=== PATIENT | male | born 1995 | race Caucasian/White ===

== ENCOUNTER 2018-04-22 16:28 | Emergency (ER) | payer BC, OTHER ==
[2018-04-22 18:02] LABS: #Basophils 0.1 thou/uL (0.0-0.2); #Eosinphils 0.2 thou/uL (0.0-0.7); #Lymphocytes 2.1 thou/uL (1.20-3.40); #Monocytes 1.2 thou/uL (0.11-0.59); #Neutrophils 5.2 thou/uL (1.40-6.50); %Eosinophils 2.2 % (0.0-10.0); %Lymphocytes 23.8 % (28.0-48.0); Hemoglobin 15.5 g/dL (14.0-18.0); Mean Corpuscular HGB CONC 31.9 g/dL (32.0-36.0); Mean Corpuscular Hemoglobin 27.3 pg (25.0-35.0); Mean Corpuscular Volume 85.5 fL (78.0-98.0); Mean Platelet Volume 8.6 fL (7.4-10.4); Platelet Count 213 thou/uL (130-400); RBC Distribution Width 12.7 % (11.5-14.5); Red Blood Cell (RBC) Count 5.69 mill/uL (4.00-5.20); White Blood Cell (WBC) Count 8.8 thou/uL (4.8-10.8)
[2018-04-22 18:21] LABS: ALT (SGPT) 38 U/L (8-55); AST (SGOT) 23 U/L (5-34); Albumin 4.3 g/dL (3.5-5.0); Alkaline Phosphatase 92 U/L (Less than 750); Anion Gap 12 mmol/L (10-20); BUN (Urea Nitrogen) 13 mg/dL (8.9-20.6); Bilirubin, Total 0.7 mg/dL (0.2-1.2); Calc. Creatinine Clearance 0 mL/min (70-130); Calcium 9.7 mg/dL (7.8-10.44); Carbon Dioxide 25 mmol/L (22-29); Chloride 106 mmol/L (98-107); Estimated GFR-MDRD 87; Globulin 3.4 g/dL (2.4-3.5); Glucose 83 mg/dL (70-105); Lipase 13 U/L (8-78); Potassium 4.5 mmol/L (3.5-5.1); Protein, Total 7.7 g/dL (6.0-8.3); Sodium 138 mmol/L (136-145)
--- NOTE | 2018-04-22 19:15 | RAD ---
CHEST TWO VIEWS 04/22/18 INDICATION: History of cough. COMPARISON: Prior exam dated 05/18/14. FINDINGS: The lungs are clear. The cardiomediastinal silhouette is within normal limits. No acute osseous abnor mality is evident. IMPRESSION: No acute cardiopulmonary abnormality. POS: [id number]
== END 2018-04-22 20:10 | disposition home or self-care (01) ==
LOC: ERS 16:28
DX: J20.9 Acute bronchitis, unspecified (principal); J45.909 Unspecified asthma, uncomplicated
CPT/HCPCS: 36415; 71046; 80053; 83690; 85025; 87804